=== PATIENT | male | born 1975 | race Two or more races ===

== ENCOUNTER 2016-11-13 11:32 | Outpatient (CLI) | payer OTHER ==
[~2016-11-13] VITALS: Ht 175.3 cm; Wt 99.5 kg
[~2016-11-13 11:32] MED LIST: ASPI-535 PO; INSULIN SC; LISINOPRIL PO; PEPCID PO; VENTOLIN INH
[2016-11-13 11:34] VITALS: BP 121/68; PULSE 90; RESP 18; Ht 175.3 cm; Wt 99.5 kg
[2016-11-13] MEDS ORDERED: PANT40TA4 PO (11:52)
[2016-11-13] MEDS ORDERED: FURO40SO PO (11:52)
[2016-11-13] MEDS ORDERED: ELBA1TAB PO (11:52)
[2016-11-13] MEDS ORDERED: LACT20SO2 PO (11:52)
[2016-11-13] MEDS ORDERED: SITA100T8 PO (11:52)
[2016-11-13] MEDS ORDERED: LISI-313 PO (11:52)
[2016-11-13] MEDS ORDERED: INSU100I12 SQ (11:52)
[2016-11-13] MEDS ORDERED: LACT10SO5 PO (11:52)
[2016-11-13] MEDS ORDERED: PROP10TA6 PO (11:52)
[2016-11-13] MEDS ORDERED: OMEP20CA16 PO (11:52)
[2016-11-13] MEDS ORDERED: RIFA550T4 PO (11:52)
[2016-11-13] MEDS ORDERED: LANT3I SC (11:52)
--- NOTE | 2016-11-13 12:04 | PN ---
Date/Time of Note Date/Time of Note DATE: 11/13/16 TIME: 11:58 Outpatient Progress Note Chief Complaint GI bleeding/cirrhosis/hepatitis C/diabetes/anemia//renal insufficiency HPI GI bleeding/patient was recently admitted with a GI bleeding, patient had banding, no nausea vomiting, abdominal pain, no melena, Cirrhosis/patient has cirrhosis of liver, no abdominal pain, no jaundice, Hepatitis C/patient has hepatitis C, patient was started on medication, but patient had a GI bleed suppression medication on hold, patient to follow with the GI, Diabetes/no polydipsia polyuria hypoglycemia, gastroparesis, Renal insufficiency/patient had renal insufficiency post bleeding, no nausea vomiting or pruritus, not on dialysis, Review of Systems Const: No Fever, no chills, no Wt. loss, slight fatigue, normal appetite, no diaphoresis. Eyes: No pain, no discharge, no redness, no visual change, no foreign body. ENT: No pain, no bleeding, no congestion, no sore throat, no dysphagia, no discharge or rhinitis. Lymph: No adenopathy, no tender nodes, no lymphedema. Resp: No SOB, no cough, no sputum, no wheezing, no chest pain. CV: No chest pain, no palpitaions, no KING, no PND, no edema. GI: Normal appetite, no pain, no nausea, no vomiting, no diarrhea, no blood, no constipation. No abdominal distention, no cramps, : No frequency, no urgency, no dysuria, no hematuria, no flank pain, no discharge, no bleeding. Musc: No bone/joint pain, no back pain, no neck pain, no knee pain, no restricted ROM. Skin: No rash, no skin lesions, no erythema, no laceration, no bruising, no pruritus. Neuro: No CLOUD, no dizziness, no syncope, no seizure, no focal-weakness. Endo: No polyuria, no polydypsia, no dry-skin, no temp-intolerance. Psych: No hallucinations, no depression, no anxiety, no suicidal ideation. Ext: No edema, no pain, no ulcer, no weakness. Physical Exam Vital Signs Date Time Temp Pulse Resp B/P Pulse Ox O2 Delivery O2 Flow Rate FiO2 11/13/16 11:34 98.2 90 18 121/68 97 Room Air General Appearance: A 41 year-old male who appears well-developed, well- nourished, slightly obese, in no acute distress. HEENT: Head normocephalic, atraumatic. Pupils equal, round, reactive to light and accommodate. Sclerae are no jaundice , nasal turbinates pink without erythema or nasal discharge. Mucous membranes pink and moist without lesions. Oropharynx clear without any exudate or discharge. NECK: Supple. Trachea midline, No thyromegaly, No cervical lymphadenopathy, No mass, No carotid bruits, No JVD, Carotid pulses 2+ bilaterally. PULMONARY: Clear to auscultaion bilaterally, No retractions, Chest expansion symmetric bilaterally, no rales, no ronchi, no dulness on percussion. CARDIAC: Normal SI and S2, Regular rate and rythm, no murmur, gallop, or rub. GASTROINTESTINAL: Abdomen is soft, non-tender, Non Rigid, No distention, Positive bowel sounds x4 quadrants, Liver normal. SKIN: Warm, dry, no rash, no bruise, no echmosis., No laceration, no pruritus, EXTREMITIES: Bilateral lower extremities normal, no edema, no phlabitus, pulse palpable, no contracture. MUSCULOSKELETAL: Spine Normal, Non-tender, Normal range of motion, No swelling, no deformity, no clubbing, or cyanosis, the patient has no edema to bilateral lower extremities, dorsalis pedis pulses palpable bilaterally. NEUROLOGIC: The patient is awake, alert, oriented, responding to yes/no questions appropriately, moving all extremities, cranial nerve intact, normal strenght, normal power, normal coordination, normal gait. Allergies Coded Allergies: No Known Allergy (Unverified , 06/27/14) PMH GI bleeding/cirrhosis/hepatitis C/diabetes/anemia/renal insufficiency Bending Social Hx No smoking no drinking, Family Hx Noncontributory Assessment/Plan Impression GI bleeding resolved/PUD Cirrhosis Hepatitis C Diabetes Anemia Renal insufficiency History of encephalopathy/thrombocytopenia Plan Continue all medication, patient has all medications supportive care, Patient has appointment with GI, Patient will follow with the primary care physician, CBC and BMP, Medications Home Meds Reported Medications Omeprazole* (Omeprazole*) 20 Mg Capsule.dr, 20 MG PO DAILY, #30 CAP 11/13/16 Propranolol Hcl* (Propranolol Hcl*) 10 Mg Tablet, 10 MG PO BID, TAB 11/13/16 Furosemide* (Furosemide*) 40 Mg/5 Ml Solution, 40 MG PO DAILY, #150 ML 11/13/16 Sitagliptin* (Januvia*) 100 Mg Tablet, 100 MG PO DAILY, #30 TAB 11/13/16 Pantoprazole* (Pantoprazole*) 40 Mg Tablet.dr, 40 MG PO AC BREAKFAST, TAB 11/13/16 Rifaximin* (Xifaxan*) 550 Mg Tablet, 550 MG PO BID, TAB 11/13/16 Lactulose* (Lactulose*) 10 Gm/15 Ml Solution, 20 GM PO DAILY, ML 11/13/16 Lactulose* (Lactulose*) 20 Gm/30 Ml Solution, 20 GM PO BID, ML 11/13/16 Elbasvir/Grazoprevir (Zepatier 50-100 mg Tablet) 1 Each Tablet, 1 EACH PO DAILY , TAB 11/13/16 Lisinopril* (Lisinopril*) 5 Mg Tablet, 5 MG PO DAILY, #30 TAB 11/13/16 Insulin Glargine* (Lantus*) 100 Unit/Ml Soln, 90 UNIT SC QHS, #1 VIAL 11/13/16 Insulin Lispro (Humalog Kwikpen U-100) 100 Unit/1 Ml Insuln.pen, 20 UNIT SQ AC MEALS 11/13/16 Discontinued Reported Medications [Ventolin] No Conflict Check, INH DAILY Y for SHORTNESS OF BREATH 06/27/14 [Lisinopril] No Conflict Check, PO DAILY 06/27/14 [Insulin] No Conflict Check, SC PC MEALS Y for ELEVATED GLUCOSE 06/27/14 Aspirin Ec (Aspir 81) 81 Mg Tablet.dr, 81 MG PO DAILY, TAB 06/27/14 [Pepcid ] No Conflict Check, PO DAILY 06/27/14 KATJA CORTES MD November 13, 2016 12:04
== END 2016-11-13 16:26 | disposition home or self-care (01) ==
LOC: DCC 11:32
PROVIDERS: ATTEND Internal Medicine
DX: K92.2 Gastrointestinal hemorrhage, unspecified (principal); E11.9 Type 2 diabetes mellitus without complications; B19.20 Unspecified viral hepatitis C without hepatic coma; K74.60 Unspecified cirrhosis of liver; D64.9 Anemia, unspecified; N28.9 Disorder of kidney and ureter, unspecified

== ENCOUNTER 2017-04-01 08:18 | Day surgery (SDC) | payer OTHER ==
[~2017-04-01] VITALS: Ht 172.7 cm; Wt 101.1 kg
[~2017-04-01 08:18] MED LIST changes: -ASPI-535 PO; +ELBA1TAB PO; +FURO40SO PO; +INSU100I12 SQ; -INSULIN SC; +LACT10SO5 PO; +LACT20SO2 PO; +LANT3I SC; +LISI-313 PO; -LISINOPRIL PO; +OMEP20CA16 PO; +PANT40TA4 PO; -PEPCID PO; +PROP10TA6 PO; +RIFA550T4 PO; +SITA100T8 PO; -VENTOLIN INH
[2017-04-01 08:47] VITALS: Ht 172.7 cm; Wt 101.1 kg
[2017-04-01 09:28] VITALS: BP 123/75; PULSE 66; RESP 16
[2017-04-01] MEDS ORDERED: FENTAnyl 50 MCG/ML VIAL ONE (09:48)
[2017-04-01] MEDS ORDERED: PROPOFOL 20 ML ONE (09:48)
[2017-04-01] MEDS ORDERED: CIPROFLOXACIN 400MG/D5W 200 ML ONE (09:55)
[2017-04-01] MEDS ORDERED: MIDAZOLAM 1 MG/ML 2 ML INJ ONE (09:57)
--- NOTE | 2017-04-01 10:16 | OPPN ---
Date/Time of Note Date/Time of Note DATE: 04/01/17 TIME: 10:14 Proc Note GI Procedure Date 04/01/17 Pre-procedure Diagnosis Esophageal varicose vein Post-procedure Diagnosis Varicose veins successfully banded Congestive gastropathy Procedure Performed: Endoscopy Surgeon see signature line Operations Supervisor 2Nd Shift none Anesthesia Type: MAC Tourniquet Time none EBL none Transfusion required none Biopsy 1: None Grafts/Implants none Tubes/Drains none Complication(s) none Pt Condition post procedure: stable Indications: therapeutic intervention Operative\Procedure Findings EGD with banding Procedure Description See the dictation SENA GOEL MD Apr 01, 2017 10:16
[2017-04-01 10:45] VITALS: BP 128/79; RESP 18
--- NOTE | 2017-04-02 08:38 | GILP ---
DATE OF PROCEDURE: PROCEDURE PERFORMED: EGD with banding INDICATION: A 41-year-old male undergoing this procedure for the surveillance of varicose vein and possible banding. The risk of the procedure, related and unrelated complications, anesthetic risks, alternatives discussed. Informed consent was obtained. DESCRIPTION OF PROCEDURE: The patient was brought to the GI lab, sedated by the anesthesiologist. After appropriate sedation, scope was passed with much ease into the esophagus. He had grade IV eso phageal varicose vein, 2 to 3 such columns were identified, advanced into the stomach. He had a con gestive gastropathy and gastritis. Duodenum, first and second part was within normal limits. On re troversion no varicose vein identified. Scope was straightened out and removed. A 7 shooter was at tached to the tip of the scope. The patient was given Cipro prior to the procedure. The scope was r eintroduced and 4 columns of veins were successfully banded. Patient tolerated the procedure. Scop e was removed with good patient tolerance. IMPRESSION: 1. 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 2. Congestive gastropathy. 3. Gastritis. 4. Normal duodenum. 5. No gastric varicose vein identified. PLAN: At this point is to start the patient on PPI. Repeat EGD in 2 to 3 months. Dictated By: SENA ALFRED/SHAVON Conf#: [id number] DID#: [id number]
== END 2017-04-01 12:08 | disposition home or self-care (01) ==
LOC: GIL 08:18
PROVIDERS: ATTEND Internal Medicine Gastroenterology
DX: I85.00 Esophageal varices without bleeding (principal); K76.6 Portal hypertension; K31.9 Disease of stomach and duodenum, unspecified; K29.70 Gastritis, unspecified, without bleeding; K74.60 Unspecified cirrhosis of liver; F17.210 Nicotine dependence, cigarettes, uncomplicated; E11.9 Type 2 diabetes mellitus without complications
CPT/HCPCS: 43244; 82962; J0744; J2250; J3010; Z7610

== ENCOUNTER 2018-03-22 06:11 | Day surgery (SDC) | END 2018-03-22 18:20 | disposition home or self-care (01) ==

== ENCOUNTER 2018-05-24 12:24 | Emergency (ER) | END 2018-05-24 14:53 | disposition home or self-care (01) ==

== ENCOUNTER 2018-09-01 10:05 | Day surgery (SDC) | payer MEDICARE, OTHER ==
[~2018-09-01] VITALS: Ht 172.7 cm; Wt 107.2 kg
[~2018-09-01 10:05] MED LIST changes: +ALBU2.5V3 NEB; +AMITRIPTYLINE; +AZIT250T PO; -ELBA1TAB PO; -FURO40SO PO; +FUROSEMIDE; -LACT10SO5 PO; -LACT20SO2 PO; -OMEP20CA16 PO; +PRED20TA PO; -RIFA550T4 PO; +SITA100T11 PO; -SITA100T8 PO
[2018-09-01 10:53] VITALS: Ht 172.7 cm; Wt 107.2 kg
[2018-09-01] MEDS ORDERED: PIOGLITAZONE (11:14)
[2018-09-01] MEDS ORDERED: INSULIN (11:14)
[2018-09-01] MEDS ORDERED: ADMELOG (11:14)
[2018-09-01] MEDS ORDERED: BASAGLAR (11:14)
[2018-09-01] MEDS ORDERED: LOSARTAN (11:14)
[2018-09-01 11:15] VITALS: BP 150/79; PULSE 65; RESP 16
--- NOTE | 2018-09-01 11:21 | PREAC ---
Date/Time of Note Date/Time of Note DATE: 09/01/18 TIME: 11: Anesthesia Eval and Record Evaluation Time Pre-Procedure Interview DATE: 09/01/18 TIME: 11:17 Age 43 Sex male NPO: 8 hrs Preoperative diagnosis Esophageal varices Planned procedure EGD Past Medical History Past Medical History: Includes Cardio: HTN, Dyslipidemia Endo: Diabetes Hepatic: Alcohol abuse, Hepatitis, Cirrhosis GI: GERD Heme: Anemia, Thrombocytopenia Surgery & Anesthesia Issues No known issue Meds Anticoagulation: No Beta Suyapa within 24 hr: No Reason Beta Suyapa not given: Pt. not on B-Suyapa Active Scripts Albuterol Sulfate* (Albuterol Sulfate* Neb) 0.083%-3 Ml Neb, 2.5 MG NEB Q4 PRN for SHORTNESS OF BREATH, #30 EA Prov:ARIEL GOMEZ MD 05/24/18 Reported Medications [Insulin] No Conflict Check 09/01/18 [Pioglitazone] No Conflict Check 09/01/18 [Losartan] No Conflict Check 09/01/18 [Basaglar] No Conflict Check 09/01/18 [Admelog Solostar] No Conflict Check 09/01/18 [Amitriptyline] No Conflict Check 03/22/18 [Furosemide] No Conflict Check 03/22/18 Propranolol Hcl* (Propranolol Hcl*) 10 Mg Tablet, 10 MG PO BID, TAB 11/13/16 Pantoprazole* (Pantoprazole*) 40 Mg Tablet.dr, 40 MG PO AC BREAKFAST, TAB 11/13/16 Discontinued Reported Medications Sitagliptin* (Januvia*) 100 Mg Tablet, 100 MG PO DAILY, #30 TAB 11/13/16 Lisinopril* (Lisinopril*) 5 Mg Tablet, 5 MG PO DAILY, #30 TAB 11/13/16 Insulin Glargine* (Lantus*) 100 Unit/Ml Soln, 90 UNIT SC QHS, #1 VIAL 11/13/16 Insulin Lispro (Humalog Kwikpen U-100) 100 Unit/1 Ml Insuln.pen, 20 UNIT SQ AC MEALS 11/13/16 Discontinued Scripts Prednisone* (Prednisone*) 20 Mg Tab, 40 MG PO DAILY for 4 Days, TAB start 05/25/2018 Prov:ARIEL GOMEZ MD 05/24/18 Azithromycin* (Zithromax*) 250 Mg Tablet, 250 MG PO .EDDY DIRECTED, #6 TAB TAKE 500 MG (2 TABS) THE FIRST DAY THEN 250 MG (1 TAB) DAYS 2-5 Prov:ARIEL GOMEZ MD 05/24/18 Meds reviewed: Yes Allergies Coded Allergies: No Known Allergy (Unverified , 05/24/18) Allergies Reviewed: Yes Labs/Studies Labs Reviewed: Reviewed by anesthesiologist test: N/A Studies: ECG Pre-procedure Exam Last vitals BP:112/56, P:78, Spo2"100%, T:98,8 Airway: Adequate mouth opening, Adequate thyromental dist Mallampati: Mallampati II Teeth: Normal Lung: Normal Heart: Normal ASA Physical Status ASA physical status: 4 Emergency: None Planned Anesthetic General/MAC: MAC Planned Pain Management Parenteral pain med Pre-operative Attestations Prior to commencing anesthesia and surgery, the patient was re-evaluated, there was verification of: *The patient's identity *The results of appropriate recent lab work and preoperative vital signs *The above evaluation not changing prior to induction *Anesthetic plan, risk benefits, alternative and complications discussed with patient/family; questions answered; patient/family understands, accepts and wishes to proceed. ERIN GARCIA MD Sep 01, 2018 11:21
[2018-09-01] MEDS ORDERED: PROPOFOL 40 ML ONE (11:22)
[2018-09-01] MEDS ORDERED: LIDOCAINE 2% (SDV) 5 ML INJ ONE (11:22)
[2018-09-01] MEDS ORDERED: CIPROFLOXACIN 400MG/D5W 200 ML ONE (11:28)
[2018-09-01 11:36] VITALS: BP 111/72
--- NOTE | 2018-09-01 11:47 | PAC ---
Date/Time of Note Date/Time of Note DATE: 09/01/18 TIME: 11:46 Post-Anesthesia Notes Post-Anesthesia Note Last documented vital signs Vital Signs Date Temp Pulse Resp B/P (MAP) Pulse Ox O2 O2 Flow FiO2 Time Delivery Rate 09/01/18 111/72 100 Nasal 11:36 (85) Cannula 09/01/18 65 16 11:15 Activity: WNL Respiratory function: WNL Cardiovascular function: WNL Mental status: Baseline Pain reasonably controlled: Yes Hydration appropriate: Yes Nausea/Vomiting absent: Yes Comments 118/64, P:78, Spo2:100%, T:98,9 ERIN GARCIA MD Sep 01, 2018 11:47
[2018-09-01] MEDS ORDERED: METOCLOPRAMIDE 10 MG INJ IV PRN (12:00)
[2018-09-01] MEDS ORDERED: ONDANSETRON 4 MG INJ IV PRN (12:00)
[2018-09-01] MEDS ORDERED: FENTAnyl 50 MCG/ML VIAL IV PRN (12:00)
[2018-09-01 12:13] VITALS: BP 127/85; RESP 16
== END 2018-09-01 12:05 | disposition home or self-care (01) ==
LOC: GIL 10:05
PROVIDERS: ATTEND Internal Medicine Gastroenterology
DX: I85.10 Secondary esophageal varices without bleeding (principal); K29.70 Gastritis, unspecified, without bleeding; I10 Essential (primary) hypertension; E78.5 Hyperlipidemia, unspecified; E11.9 Type 2 diabetes mellitus without complications
CPT/HCPCS: 43244; 82962; J0744

== ENCOUNTER 2019-01-13 09:08 | Day surgery (SDC) | payer MEDICARE, OTHER ==
[~2019-01-13] VITALS: Ht 172.7 cm; Wt 97.8 kg
[~2019-01-13 09:08] MED LIST changes: +ADMELOG; -AZIT250T PO; +BASAGLAR; -INSU100I12 SQ; +INSULIN; -LANT3I SC; -LISI-313 PO; +LOSARTAN; +PIOGLITAZONE; -PRED20TA PO; -SITA100T11 PO
[2019-01-13 10:04] VITALS: Ht 172.7 cm; Wt 97.8 kg
[2019-01-13 11:10] VITALS: BP 123/71; PULSE 60; RESP 18
[2019-01-13] MEDS ORDERED: CIPROFLOXACIN 400MG/D5W 200 ML ONE (11:10)
--- NOTE | 2019-01-13 11:13 | PREAC ---
Date/Time of Note Date/Time of Note DATE: 01/13/19 TIME: 11:11 Anesthesia Eval and Record Evaluation Time Pre-Procedure Interview DATE: 01/13/19 TIME: 11:11 Age 43 Sex male NPO: 8 hrs Preoperative diagnosis Esophageal Varices Planned procedure EGD Past Medical History Past Medical History: Includes Cardio: HTN, Dyslipidemia Endo: Diabetes Pulm: Smoking Hx Hepatic: Cirrhosis GI: GERD Infection(s): Hep C Surgery & Anesthesia Issues No known issue Meds Anticoagulation: No Beta Suyapa within 24 hr: No Reason Beta Suyapa not given: Pt. not on B-Suyapa Active Scripts Albuterol Sulfate* (Albuterol Sulfate* Neb) 0.083%-3 Ml Neb, 2.5 MG NEB Q4 PRN for SHORTNESS OF BREATH, #30 EA Prov:ARIEL GOMEZ MD 05/24/18 Reported Medications [Insulin] No Conflict Check 09/01/18 [Pioglitazone] No Conflict Check 09/01/18 [Losartan] No Conflict Check 09/01/18 [Basaglar] No Conflict Check 09/01/18 [Admelog Solostar] No Conflict Check 09/01/18 [Amitriptyline] No Conflict Check 03/22/18 [Furosemide] No Conflict Check 03/22/18 Propranolol Hcl* (Propranolol Hcl*) 10 Mg Tablet, 10 MG PO BID, TAB 11/13/16 Pantoprazole* (Pantoprazole*) 40 Mg Tablet.dr, 40 MG PO AC BREAKFAST, TAB 11/13/16 Meds reviewed: Yes Allergies Coded Allergies: No Known Allergy (Unverified , 05/24/18) Allergies Reviewed: Yes Labs/Studies Labs Reviewed: Reviewed by anesthesiologist test: N/A Studies: ECG (n/a), CXR (n/a) Pre-procedure Exam Last vitals Vital Signs Date Temp Pulse Resp B/P (MAP) Pulse Ox O2 O2 Flow FiO2 Time Delivery Rate 01/13/19 98.0 60 18 123/71 100 Room Air 11:10 (88) Airway: Adequate mouth opening, Adequate thyromental dist Mallampati: Mallampati II Teeth: Normal Lung: Normal Heart: Normal ASA Physical Status ASA physical status: 3 Emergency: None Planned Anesthetic General/MAC: MAC Planned Pain Management Parenteral pain med Pre-operative Attestations Prior to commencing anesthesia and surgery, the patient was re-evaluated, there was verification of: *The patient's identity *The results of appropriate recent lab work and preoperative vital signs *The above evaluation not changing prior to induction *Anesthetic plan, risk benefits, alternative and complications discussed with patient/family; questions answered; patient/family understands, accepts and wishes to proceed. JONO BALDERRAMA MD Jan 13, 2019 11:13
[2019-01-13 11:30] VITALS: BP 90/53; PULSE 74; RESP 20
[2019-01-13 11:33] VITALS: BP 88/54; PULSE 71; RESP 18
--- NOTE | 2019-01-13 11:33 | PAC ---
Date/Time of Note Date/Time of Note DATE: 01/13/19 TIME: 11:33 Post-Anesthesia Notes Post-Anesthesia Note Last documented vital signs Vital Signs Date Temp Pulse Resp B/P (MAP) Pulse Ox O2 O2 Flow FiO2 Time Delivery Rate 01/13/19 98.0 60 18 123/71 100 Room Air 11:30 (88) Activity: WNL Respiratory function: WNL Cardiovascular function: WNL Mental status: Baseline Pain reasonably controlled: Yes Hydration appropriate: Yes Nausea/Vomiting absent: Yes JONO BALDERRAMA MD Jan 13, 2019 11:33
[2019-01-13 11:43] VITALS: BP 108/67; PULSE 70; RESP 20
[2019-01-13] MEDS ORDERED: INSULIN ASPART [NOVOLOG] 3 ML PEN SC SCH (12:00)
[2019-01-13] MEDS ORDERED: PROPOFOL 60 ML ONE (12:05)
[2019-01-13] MEDS ORDERED: METOCLOPRAMIDE 10 MG INJ ONE (12:06)
[2019-01-13] MEDS ORDERED: ONDANSETRON 4 MG INJ ONE (12:06)
[2019-01-13] MEDS ORDERED: INSULIN ASPART [NOVOLOG] 3 ML PEN SC ONE (12:30)
[2019-01-13 13:03] VITALS: BP 129/68; PULSE 80; RESP 19
== END 2019-01-13 14:11 | disposition home or self-care (01) ==
LOC: GIL 09:08
PROVIDERS: ATTEND Internal Medicine Gastroenterology
DX: I85.00 Esophageal varices without bleeding (principal); K29.70 Gastritis, unspecified, without bleeding; E11.9 Type 2 diabetes mellitus without complications; I10 Essential (primary) hypertension; E78.5 Hyperlipidemia, unspecified; F17.200 Nicotine dependence, unspecified, uncomplicated
CPT/HCPCS: 43244; 82962; J0744; J1815; J2405; J2765